=== PATIENT | male | born 1995 | race Two or more races ===

== ENCOUNTER 2017-04-18 19:19 | Emergency (ER) | payer SELFPAY ==
[~2017-04-18] VITALS: Ht 175.3 cm; Wt 86.2 kg
[2017-04-18] MEDS ORDERED: Sodium Chloride 500ML 500 ML IV ONE (19:34)
[2017-04-18 19:35] VITALS: BP 141/97
[2017-04-18] MEDS ORDERED: Ketorolac 30mg Inj IV ONE (19:45)
[2017-04-18] MEDS ORDERED: Morphine Sulfate 4mg/ml Inj IVP ONE ×2 (19:45→21:45)
[2017-04-18 20:03] LABS: BASOPHILS % (AUTO) 0.9 % (0.0-2.0); EOSINOPHILS % (AUTO) 1.4 % (0.0-3.0); LYMPHOCYTES % (AUTO) 23.2 % (20.0-45.0); MEAN CORPUSCULAR HEMOGLOBIN 27.9 PG (27.0-31.0); MEAN CORPUSCULAR HGB CONC 33.3 G/DL (32.0-36.0); MEAN CORPUSCULAR VOLUME 84 FL (80-99); MEAN PLATELET VOLUME 8.5 FL (6.5-10.1); MONOCYTES % (AUTO) 7.4 % (1.0-10.0); NEUTROPHILS % (AUTO) 67.1 % (45.0-75.0); PLATELET COUNT 243 K/UL (150-450); RED BLOOD COUNT 5.51 M/UL (4.70-6.10); RED CELL DISTRIBUTION WIDTH 11.9 % (11.6-14.8); WHITE BLOOD COUNT 12.4 K/UL (4.8-10.8)
[2017-04-18 20:24] LABS: ANION GAP 11 mmol/L (5-15); CALCIUM 9.6 MG/DL (8.5-10.1); CARBON DIOXIDE 27 MMOL/L (21-32); CHLORIDE 102 MMOL/L (98-107); CREATININE 1.1 MG/DL (0.55-1.30); GLOMERULAR FILTRATION RATE > 60 mL/min (>60); POTASSIUM 3.6 MMOL/L (3.5-5.1); SODIUM 139 MMOL/L (136-145)
[2017-04-18 20:28] LABS: ALANINE AMINOTRANSFERASE 51 U/L (12-78); ASPARTATE AMINO TRANSFERASE 30 U/L (15-37); LIPASE 125 U/L (73-393); TOTAL PROTEIN 8.9 G/DL (6.4-8.2)
[2017-04-18 20:42] LABS: APPEARANCE,URINE CLEAR; KETONES,URINE NEGATIVE (NEGATIVE); LEUKOCYTE ESTERASE ,URINE NEGATIVE (NEGATIVE); NITRITE,URINE NEGATIVE (NEGATIVE); PH,URINE 5 (4.5-8.0); PROTEIN,URINE NEGATIVE (NEGATIVE); UROBILINOGEN,URINE NORMAL MG/DL (0.0-1.0)
[2017-04-18 20:55] LABS: BACTERIA,URINE FEW /HPF
[2017-04-18] MEDS ORDERED: Tamsulosin 0.4mg cap ORAL ONE (21:45)
[2017-04-18 22:00] VITALS: BP 127/63
[2017-04-18] MEDS ORDERED: NORCO 5-325 TA1 EACH ORAL (22:07)
[2017-04-18] MEDS ORDERED: FLOMAX0.4 MG ORAL (22:07)
[2017-04-18] MEDS ORDERED: IBUPROFEN600 MG ORAL (22:07)
[2017-04-18] MEDS ORDERED: ZOFRAN ODT4 MG ORAL (22:07)
--- NOTE | 2017-04-18 22:13 | Emergency Room Report ---
History of Present Illness General Chief Complaint: Abdominal Pain Source: Patient Present Illness HPI 22-year-old male presents ED for evaluation. starting at 4 PM he developed right-sided flank pain radiating to the lower abdomen. 10 out of 10, throbbing. Denies fevers or chills. Notes nausea and vomiting. Denies chest pain shortness of breath. No other aggravating relieving factors. Denies any other associated symptoms Allergies: Coded Allergies: No Known Allergies (Unverified , 04/18/17) Patient History Past Medical History: none Past Surgical History: none Pertinent Family History: none Social History: Denies: smoking, alcohol use, drug use Immunizations: UTD Reviewed Nursing Documentation: PMH: Agreed, PSxH: Agreed Nursing Documentation-PMH Past Medical History: No Stated History Review of Systems All Other Systems: negative except mentioned in HPI Physical Exam Vital Signs Date Time Temp Pulse Resp B/P (MAP) Pulse Ox O2 Delivery O2 Flow Rate FiO2 04/18/17 19:24 115 18 141/84 98 Room Air Sp02 EP Interpretation: reviewed, normal General Appearance: alert, GCS 15, non-toxic, moderate distress Head: normocephalic, atraumatic Eyes: bilateral eye normal inspection, bilateral eye PERRL ENT: hearing grossly normal, normal pharynx, no angioedema, normal voice Neck: full range of motion, supple/symm/no masses Respiratory: chest non-tender, lungs clear, normal breath sounds, speaking full sentences Cardiovascular #1: regular rate, rhythm, no edema Cardiovascular #2: 2+ carotid (R), 2+ carotid (L), 2+ radial (R), 2+ radial (L) , 2+ dorsalis pedis (R), 2+ dorsalis pedis (L) Gastrointestinal: normal bowel sounds, soft, non-distended, no guarding, no rebound, tenderness Rectal: deferred Genitourinary: normal inspection, CVA tenderness (R), other - R testticular pain Musculoskeletal: back normal, gait/station normal, normal range of motion, non- tender Neurologic: alert, oriented x3, responsive, motor strength/tone normal, sensory intact, speech normal Psychiatric: judgement/insight normal, memory normal, mood/affect normal, no suicidal/homicidal ideation Reflexes: 3+ bicep (R), 3+ bicep (L), 3+ tricep (R), 3+ tricep (L), 3+ knee (R) , 3+ knee (L) Skin: normal color, no rash, warm/dry, well hydrated Lymphatic: no adenopathy Medical Decision Making Diagnostic Impression: Primary Impression: Kidney stone ER Course Hospital Course 22-year-old M presents to ED with R flank pain, R lower abd pain Differential diagnosis includes-appendicitis, cholecystitis, kidney stone, pyelonephritis Clinical course Patient placed on stretcher. After initial history and physical I ordered labs , IV fluids, pain medications and CT scan, Scrotal US Labs - no leukocytosis, electrolytes ok, LFTs normal, UA - hematuria, no UTI Scrotal US shows epididymal cyst, no torsion CT scan shows 3mm stone in distal R ureter with hydronephrisis/hydroureter Upon reassessment, patient states pain has improved. Given improvement in symptoms, I believe patient can be safely discharged to home. Patient agrees with plan I feel this is a highly complex case requiring extensive working including EKG/ Rhythm strip, Xray/CT/US, Blood/urine lab work, repeat exams while in ED, and administration of strong opiates/narcotics for pain control, admission to hospital or close patient follow up. Diagnosis - kidney stone Stable and discharged to home with Rx Motrin, [place], Flomax, zofran. Followup with PMD. Return to ED if symptoms recur or worsen Labs Test 04/18/17 19:23 04/18/17 19:38 White Blood Count 12.4 K/UL (4.8-10.8) Red Blood Count 5.51 M/UL (4.70-6.10) Hemoglobin 15.4 G/DL (14.2-18.0) Hematocrit 46.3 % (42.0-52.0) Mean Corpuscular Volume 84 FL (80-99) Mean Corpuscular Hemoglobin 27.9 PG (27.0-31.0) Mean Corpuscular Hemoglobin Concent 33.3 G/DL (32.0-36.0) Red Cell Distribution Width 11.9 % (11.6-14.8) Platelet Count 243 K/UL (150-450) Mean Platelet Volume 8.5 FL (6.5-10.1) Neutrophils (%) (Auto) 67.1 % (45.0-75.0) Lymphocytes (%) (Auto) 23.2 % (20.0-45.0) Monocytes (%) (Auto) 7.4 % (1.0-10.0) Eosinophils (%) (Auto) 1.4 % (0.0-3.0) Basophils (%) (Auto) 0.9 % (0.0-2.0) Sodium Level 139 MMOL/L (136-145) Potassium Level 3.6 MMOL/L (3.5-5.1) Chloride Level 102 MMOL/L (98-107) Carbon Dioxide Level 27 MMOL/L (21-32) Anion Gap 11 mmol/L (5-15) Blood Urea Nitrogen 14 mg/dL (7-18) Creatinine 1.1 MG/DL (0.55-1.30) Estimat Glomerular Filtration Rate > 60 mL/min (>60) Glucose Level 105 MG/DL (74-106) Calcium Level 9.6 MG/DL (8.5-10.1) Total Bilirubin 0.3 MG/DL (0.2-1.0) Aspartate Amino Transf (AST/SGOT) 30 U/L (15-37) Alanine Aminotransferase (ALT/SGPT) 51 U/L (12-78) Alkaline Phosphatase 69 U/L (46-116) Total Protein 8.9 G/DL (6.4-8.2) Albumin 4.4 G/DL (3.4-5.0) Globulin 4.5 g/dL Albumin/Globulin Ratio 1.0 (1.0-2.7) Lipase 125 U/L (73-393) Urine Color Pale yellow Urine Appearance Clear Urine pH 5 (4.5-8.0) Urine Specific [place] 1.020 (1.005-1.035) Urine Protein Negative (NEGATIVE) Urine Glucose (UA) Negative (NEGATIVE) Urine Ketones Negative (NEGATIVE) Urine Occult Blood 5+ (NEGATIVE) Urine Nitrite Negative (NEGATIVE) Urine Bilirubin Negative (NEGATIVE) Urine Urobilinogen Normal MG/DL (0.0-1.0) Urine Leukocyte Esterase Negative (NEGATIVE) Urine RBC 5-10 /HPF (0 - 0) Urine WBC 2-4 /HPF (0 - 0) Urine Squamous Epithelial Cells None /LPF (NONE/OCC) Urine Bacteria Few /HPF (NONE) CT/MRI/US Diagnostic Results CT/MRI/US Diagnostic Results #1: Imaging Test Ordered: Scrotal US Impression epididymal cyst. no torsion CT/MRI/US Diagnostic Results #2: Imaging Test Ordered: CT A/P Impression R sided 3mm stone with hydronephrosis/hydroureter Last Vital Signs Date Time Temp Pulse Resp B/P (MAP) Pulse Ox O2 Delivery O2 Flow Rate FiO2 04/18/17 19:35 102 18 141/97 98 Room Air Status: improved Disposition: HOME, SELF-CARE Condition: Stable Scripts Ondansetron Odt* (ZOFRAN ODT*) 4 Mg Tab.rapdis 4 MG ORAL Q6H Y for Nausea & Vomiting, #30 TAB 0 Refills Prov: ILDA NEIL M.D. 04/18/17 Tamsulosin HCl (Flomax) 0.4 Mg Cap.er.24h 0.4 MG ORAL DAILY, #10 CAP Prov: ILDA NEIL M.D. 04/18/17 Hydrocodone Bit/Acetaminophen 5-325* (NORCO 5-325*) 1 Each Tablet 1 TAB ORAL Q6H Y for For Pain, #10 TAB 0 Refills Prov: ILDA NEIL M.D. 04/18/17 Ibuprofen* (MOTRIN*) 600 Mg Tablet 600 MG ORAL Q8H Y for For Pain, #30 TAB 0 Refills Prov: ILDA NEIL M.D. 04/18/17 Patient Instructions: Kidney Stones, [id number] ILDA NEIL M.D. Apr 18, 2017 22:13
[2017-04-18 22:15] VITALS: BP 127/63
--- NOTE | 2017-04-20 11:07 | Diagnostic Imaging Report ---
Indications: Right testicular pain Technique: Grayscale and duplex images of the scrotum Comparison:None Findings:The right testicle measures 4.3cm in length. It demonstrates normal echogenicity. Normal Doppler flow. A 5 mm cyst is seen in the epididymal head. There is questionably a tiny varicocele. The left testicle measures 4.2 cm in length. It demonstrates normal echogenicity and normal Doppler flow. Normal epididymis. There is a minimal hydrocele Impression: No acute abnormality Incidental findings of 5 mm right epididymal head epididymal cyst versus spermatocele, tiny right varicocele, minimal left hydrocele
== END 2017-04-18 22:15 | disposition home or self-care (01) ==
LOC: EMR 20:25
DX: N20.0 Calculus of kidney (principal)
CPT/HCPCS: 36415; 74177; 76870; 80053; 81003; 83690; 85025; 96361; 96374; 96375; 96376; 99284; J1885; J2270; J7040; Q9967

== ENCOUNTER 2019-10-02 15:13 | Emergency (ER) | payer BC ==
[~2019-10-02] VITALS: Ht 175.3 cm; Wt 81.6 kg
[~2019-10-02 15:13] MED LIST: FLOMAX0.4 MG ORAL; IBUPROFEN600 MG ORAL; NORCO 5-325 TA1 EACH ORAL; ZOFRAN ODT4 MG ORAL
[2019-10-02 15:30] VITALS: BP 149/88
[2019-10-02] MEDS ORDERED: Morphine Sulfate 4mg/ml Inj (IV USE ONLY) IVP ONE (15:30)
[2019-10-02] MEDS ORDERED: Ketorolac 30mg Inj IV ONE (15:30)
--- NOTE | 2019-10-02 15:30 | NUR ---
ED Nurse Note: Pt walked in from home c/o left lower back and flank pain. Reports dysuria last night and hx of kidney stones. Pt says that this feels similar. Respirations even and unlabored on room air. Vitals stable as documented.
--- NOTE | 2019-10-02 15:38 | NUR ---
ED Nurse Note: urine and blood sent to lab
[2019-10-02 15:53] LABS: APPEARANCE,URINE CLEAR; BILIRUBIN, URINE NEGATIVE (NEGATIVE); GLUCOSE, URINE (UA) NEGATIVE (NEGATIVE); KETONES,URINE 1+ (NEGATIVE); LEUKOCYTE ESTERASE ,URINE NEGATIVE (NEGATIVE); NITRITE,URINE NEGATIVE (NEGATIVE); PH,URINE 5 (4.5-8.0); PROTEIN,URINE NEGATIVE (NEGATIVE); UROBILINOGEN,URINE NORMAL MG/DL (0.0-1.0)
[2019-10-02 15:56] LABS: COLOR,URINE YELLOW
--- NOTE | 2019-10-02 15:57 | Emergency Room Report ---
History of Present Illness General Chief Complaint: Back Pain-No Injury Source: Patient Present Illness HPI 24-year-old male presents to the emergency department complaining of 7 out of 10 severity left-sided flank pain since yesterday. Patient reports initially his pain was intermittent he describes sharp stabbing in nature he denies radiation. He reports noticing urinary frequency and some dysuria since last night. He denies hematuria. He denies penile d/c, genital rashes or suspicion of STD. He denies abdominal tenderness. He denies fevers or chills. He reports some nausea but denies vomiting. He denies constipation or diarrhea. No other aggravating or relieving factors at this time. Patient reports history of renal calculi in the past which did present in a similar fashion. Allergies: Coded Allergies: No Known Allergies (Unverified , 04/18/17) COVID-19 Screening Contact w/high risk pt: No Recent Travel to affected area: No Experienced COVID-19 symptoms?: No COVID-19 Testing performed FILM REPRODUCER: No Patient History Past Medical History: see triage record Past Surgical History: none Pertinent Family History: none Reviewed Nursing Documentation: PMH: Agreed; PSxH: Agreed Nursing Documentation-PMH Past Medical History: No Stated History Review of Systems All Other Systems: negative except mentioned in HPI Physical Exam Vital Signs Date Time Temp Pulse Resp B/P (MAP) Pulse Ox O2 Delivery O2 Flow Rate FiO2 10/02/19 15:17 99.0 84 18 154/85 (108) 97 Sp02 EP Interpretation: reviewed, normal General Appearance: no apparent distress, alert, GCS 15, non-toxic Head: normocephalic, atraumatic Eyes: bilateral eye normal inspection, bilateral eye PERRL ENT: hearing grossly normal, normal voice Neck: full range of motion Respiratory: lungs clear, normal breath sounds, speaking full sentences Cardiovascular #1: regular rate, rhythm, no edema Gastrointestinal: normal bowel sounds, non tender, soft, non-distended, no guarding Genitourinary: normal inspection, no CVA tenderness Musculoskeletal: back normal, normal range of motion, gait/station normal, non- tender Neurologic: alert, motor strength/tone normal, oriented x3, sensory intact, responsive, speech normal Psychiatric: judgement/insight normal Lymphatic: no adenopathy Medical Decision Making PA Attestation Dr. Acevedo is my supervising Physician whom patient management has been discussed with. Diagnostic Impression: Primary Impression: Kidney stone ER Course 24-year-old male presents to the emergency department complaining of 7 out of 10 severity left-sided flank pain since yesterday. Patient reports initially his pain was intermittent he describes sharp stabbing in nature he denies radiation. He reports noticing urinary frequency and some dysuria since last night. He denies hematuria. He denies penile d/c, genital rashes or suspicion of STD. He denies abdominal tenderness. He denies fevers or chills. He reports some nausea but denies vomiting. He denies constipation or diarrhea. No other aggravating or relieving factors at this time. Patient reports history of renal calculi in the past which did present in a similar fashion. Ddx considered but are not limited to Diverticulitis, acute appy, diarrhea,UC, PUD, GE, pancreatitis, gallstone, kidney stone, pyelonephritis, UTI, obstruction. Vital signs: are WNL, pt. is afebrile H&PE are most consistent with Possible renal calculi +/- UTI - This is a medically complicated patient requiring a full work up- Labs and imaging warranted. Pt. requires IV pain medications ORDERS: -CBC, CMP, lipase: WNL - UA: RBCs and Blood present- c/w stone. Few bacteria - suspected early UTI secondary to stone. - CT abdomen and pelvis no contrast: multiple renal calculi ED INTERVENTIONS: -- 1000NS -30mg Toradol IV --4mg Morphine for pain -I do not identify an emergent condition at this time. With current presentation , pt. is stable for close outpatient follow up and conservative treatment. D/ w pt. to return promptly to ED with worsening or new symptoms.- Pt. verbalizes' understanding and agreement with proposed treatment plan. DISCHARGE: At this time pt. is stable for d/c to home. Will provide printed patient care instructions, and any necessary prescriptions. Care plan and follow up instructions have been discussed with the patient prior to discharge. CT/MRI/US Diagnostic Results CT/MRI/US Diagnostic Results : Imaging Test Ordered: CT Abdomen and Pelvis w/o contrast Impression " IMPRESSION: MULTIPLE LEFT INTRARENAL STONES. NO HYDRONEPHROSIS. SMALL STONE LEFT POSTERIOR ASPECT OF THE URINARY BLADDER LIKELY A RECENTLY PASSED STONE." Per official radiology report- Please see report for specific details. Per official radiology report- Please see report for specific details. Last Vital Signs Date Time Temp Pulse Resp B/P (MAP) Pulse Ox O2 Delivery O2 Flow Rate FiO2 10/02/19 15:17 99.0 84 18 154/85 (108) 97 Status: improved Disposition: HOME, SELF-CARE Condition: Stable Scripts Cephalexin* (KEFLEX*) 500 Mg Capsule 500 MG ORAL EVERY 12 HOURS for 7 Days, #14 CAP 0 Refills Prov: Meghan Franklin 10/02/19 Tamsulosin HCl (Flomax) 0.4 Mg Cap.er.24h 0.4 MG ORAL DAILY for 5 Days, #5 CAP Prov: Meghan Franklin 10/02/19 Hydrocodone Bit/Acetaminophen 5-325* (NORCO 5-325 TABLET*) 1 Each Tablet 1 TAB ORAL Q6H PRN for FOR PAIN, #12 TAB 0 Refills Prov: Meghan Franklin 10/02/19 Referrals: NOT CHOSEN IPA/MD,REFERRING (PCP) Patient Instructions: Kidney Stones Additional Instructions: Take medications as directed. Do not drink alcohol, drive, or operate heavy machinery while taking [place] as this may cause drowsiness. Follow up with a Primary Care Provider and Urologist in 3-5 days, even if your symptoms have resolved. --Please review list of primary care clinics, if you do not already have a primary care provider Return sooner to ED if new symptoms occur, or current symptoms become worse. - Please note that this Emergency Department Report was dictated using [employer] technology software, occasionally this can lead to erroneous entry secondary to interpretation by the dictation equipment. Meghan Franklin October 02, 2019 15:57
[2019-10-02 15:59] LABS: BASOPHILS % (AUTO) 1.5 % (0.0-2.0); EOSINOPHILS % (AUTO) 2.2 % (0.0-3.0); HEMATOCRIT 45.2 % (42.0-52.0); HEMOGLOBIN 14.9 G/DL (14.2-18.0); LYMPHOCYTES % (AUTO) 29.5 % (20.0-45.0); MEAN CORPUSCULAR VOLUME 84 FL (80-99); NEUTROPHILS % (AUTO) 59.9 % (45.0-75.0); PLATELET COUNT 181 K/UL (150-450); RED CELL DISTRIBUTION WIDTH 12.9 % (11.6-14.8); WHITE BLOOD COUNT 7.5 K/UL (4.8-10.8)
[2019-10-02 16:02] LABS: ANION GAP 10 mmol/L (5-15); BLOOD UREA NITROGEN 13 mg/dL (7-18); CALCIUM 9.6 MG/DL (8.5-10.1); CARBON DIOXIDE 29 MMOL/L (21-32); CHLORIDE 104 MMOL/L (98-107); CREATININE 1.1 MG/DL (0.55-1.30); POTASSIUM 4.2 MMOL/L (3.5-5.1); SODIUM 143 MMOL/L (136-145)
[2019-10-02 16:06] LABS: ALANINE AMINOTRANSFERASE 41 U/L (12-78); ALBUMIN 4.6 G/DL (3.4-5.0); ALBUMIN/GLOBULIN RATIO 1.2 (1.0-2.7); ALKALINE PHOSPHATASE 56 U/L (46-116); ASPARTATE AMINO TRANSFERASE 26 U/L (15-37); BILIRUBIN,TOTAL 0.5 MG/DL (0.2-1.0)
--- NOTE | 2019-10-02 16:33 | Diagnostic Imaging Report ---
EXAM: CT CT Abdomen Pelvis WO Contrast INDICATION: Left flank pain. COMPARISON: None TECHNIQUE: Axial images were obtained through the abdomen pelvis without intravenous contrast. Sagittal and coronal reformats are generated. All CT scans at this facility are performed using dose modulation techniques as appropriate to a performed exam including the following: automated exposure control with adjustment of the mA and/or kV according to patient size. RADIATION DOSE: CTDIvol: 6.2 mGy DLP: 347 mGy-cm Dose information generated by the CT scanner is available in PACS. FINDINGS: The lung bases are clear. The liver and spleen are homogeneous. Gallbladder is without sludge or stone and there is no wall thickening. The pancreas is unremarkable. Adrenals are normal in morphology. There are several left intrarenal stones. No hydronephrosis demonstrated. Small bowel loops are nondistended. The colon is also nondistended with average amount of stool. The appendix is not visualized. There is no free fluid or free air. No pathologic adenopathy demonstrated. In the bladder, there is a small calcific density in the left posterior aspect near the left UVJ approximately 2 mm. Given patient's history, this is likely a recently passed stone. There is no suspicious superficial soft tissue or osseous abnormality. IMPRESSION: MULTIPLE LEFT INTRARENAL STONES. NO HYDRONEPHROSIS. SMALL STONE LEFT POSTERIOR ASPECT OF THE URINARY BLADDER LIKELY A RECENTLY PASSED STONE.
[2019-10-02] MEDS ORDERED: FLOMAX0.4 MG ORAL (17:14)
[2019-10-02] MEDS ORDERED: CEPHALEXIN500 MG ORAL (17:14)
[2019-10-02] MEDS ORDERED: NORCO 5-325 TA1 EAC1 ORAL (17:14)
[2019-10-02 17:28] VITALS: BP 145/84
--- NOTE | 2019-10-02 17:28 | NUR ---
ER DISCHARGE NOTE: Patient is cleared to be discharged per ERMD, pt is aox4, on room air, with stable vital signs. pt was given dc and prescription instructions, pt was able to verbalize understanding, pt id band and iv site removed without complications. pt is able to ambulate with steady gait. pt took all belongings.
== END 2019-10-02 17:28 | disposition home or self-care (01) ==
LOC: EMR 15:29
DX: N20.0 Calculus of kidney (principal)
CPT/HCPCS: 36415; 74176; 80053; 81003; 83690; 85025; 96361; 96374; 96375; 99284; J1885; J2270; J2405; J7030